=== PATIENT | female | born 1975 | race Caucasian/White ===

== ENCOUNTER → 2018-03-27 14:34 | Outpatient (CLI) | payer OTHER, SELFPAY ==
[2018-03-27 16:03] LABS: Thyroid Stim Hormone (TSH) 0.07 uIU/mL (0.358-3.74)
== END ==
PROVIDERS: Nurse Practitioner Family; Family Provider Family Medicine; PCP Family Medicine; Visit Provider Family Medicine
DX: E03.9 Hypothyroidism, unspecified (principal)
CPT/HCPCS: 36415; 84443

== ENCOUNTER → 2018-05-29 11:24 | Outpatient (CLI) | payer OTHER, SELFPAY ==
[2016-05-21 19:57] VITALS: BMI 32.8
[2018-05-29 16:10] LABS: Thyroid Stim Hormone (TSH) 0.13 uIU/mL (0.358-3.74)
== END ==
LOC: MFPLAB 11:25
PROVIDERS: Family Provider Family Medicine; PCP Family Medicine; Visit Provider Family Medicine
DX: E03.9 Hypothyroidism, unspecified (principal)
CPT/HCPCS: 36415; 84443

== ENCOUNTER 2018-06-12 09:00 | Outpatient (RCR) | payer OTHER, SELFPAY ==
--- NOTE | 2018-06-12 09:05 | BH.SGPN.GN ---
Behaviors/Verbalizations/Mental Status: []Client alert and oriented, neatly dressed and groomed. Eye contact fair. Motor activity slowed. Speech soft, rapid. Affect congruent-tearful, mood depressed, overwhelmed. Thoughts racing no signs of hallucinations or delusions. Client to meet with individual therapist to review symptoms and assess risk. Client Response/Progress/Benefit: []Client entered session alert and oriented, tearful throughout. Receptive to feedback from peers. Client shared the last few months her life has ?imploded.? Client reported she had been in a three-year relationship with a man who had bipolar disorder and the relationship ?turned into be being the caregiver? rather than a partner. Client stated she set a boundary and got her own place which ended the relationship. Client shared she later found out her partner was cheating on her and ?something inside me broke.? Client reported she overdosed on pills and her son found her. Client stated, ?I spent all this time taking care of others I forgot about me.? Client receptive to supportive statements from peers and she nodded throughout. Client shared she wants to stop feeling miserable and hopes IOP can help her do that. Client identified coming to IOP as a positive and acknowledged she is motivated to feel better which is a strength as well. Client appeared to benefit from connecting with peers and reducing stigma. Client?s first day in IOP. Client to continue to prevent decompensation and reduce depression.
--- NOTE | 2018-06-12 10:15 | BH.SGPN.GN ---
Behaviors/Verbalizations/Mental Status: [] Eye contact is good. Motor activity is appropriate. Appearance is causal. Speech is Appropriate. Mood is depressed. Affect is flat. Thoughts are linear and logical. No evidence of psychosis. Client Response/Progress/Benefit: [] Pt was an not an active participant discussion. SHe participated in group activiety however was tearful at times. Appeared attentive AEB by head-nodding and note taking. This was pt's first day in the program. Will continue in IOP to maintain safety, prevent decompensation, and improve functioning to return to work. Narrative Note: []
--- NOTE | 2018-06-12 14:30 | BH.MDN ---
Multi-Disciplinary Note - Note 30-min Individual Time Started:: 11:40 Date: 06/12/18 Purpose of session/treatment goals addressed:: The purpose of this session was to build rapport and gather information on client's current stressors, symptoms, and psychosocial concerns. Another goal was to establish treatment goals and provide emotional support. Eye Contact:: Good Motor Activity:: Appropriate Appearance:: Casual Mood:: Anxious, Dysthymic Affect:: Congruent - tearful Thoughts:: Racing, No evidence of hallucinations/delusions noted Staff Interventions:: Therapist used active listening and open-ended questions to explore client?s current stressors, symptoms, supports, and treatment goals. Therapist provided client a safe space to verbalize and process emotions, stressors, and psychosocial issues without judgement. Therapist provided emotional validation and support while processing client?s recent life changes and mental health. Therapist used psychoeducation to increase awareness of depression, medication, and reduce stigma. Therapist assessed risk and explored healthy supports. Therapist used strengths perspective and reassurance to reduce anxiety on stressors. Therapist gave client homework to identify current problems, triggers, and coping skills that have worked in the past. Client Response:: Client entered session alert and oriented, tearful throughout. Client reports she has not felt okay in two months. Client shared it is hard for her to open up about her emotions, so she numbs to avoid the floodgates. Client recently discharged from inpatient after a suicide attempt by overdose. Client stated she is remorseful of the event due to the impact it had on her family and son. Client denied active suicidal ideation as of this date. Client reported symptoms of depression including anhedonia, weight loss, crying spells, and feeling miserable and numb. Client shared these symptoms were triggered by a breakup with her boyfriend client had been with for 3 years. Client stated after the breakup she found out additional information and something inside me broke. Additionally, client reports financial and work stressors that are impacting her mental health and functioning. Client stated if I don't get it together by the end of the month and go back to work I lose my insurance. Client shared this is causing anxiety as client reports feeling like she is on a countdown. Client reported belief her current medication is not effective and is hoping that she can get a different opinion when she sees her psychiatrist tomorrow. Client able to identify positives and strengths that will support her mental health. Client acknowledged coming to IOP as a strength, accepting help from her mother and step father, and taking things one day at a time. Risks/Concerns:: Client reports having passive suicidal thoughts since discharging from the hospital, but she reported it's nothing I can't control. Client denies active suicidal ideation, plan, and intent as of 06/12/18. Client reports ability to maintain safety. Client appeared remorseful for her recent overdose. reported having protective factors and supports who could stay with her or check in on client should she need support or feel unsafe. Future oriented throughout session. Plans to see her outpatient providers tomorrow. Progress Toward Goals/Plan:: Client's first day in IOP. No progress to document at this time. Client reports wanting to be able to function without feeling overwhelmed all the time. Client also would like to be able to process her emotions, find appropriate medication, and not feel miserable anymore. Client receptive to homework from therapist. Client open to therapist talking with client's outpatient provider. Client to continue IOP to prevent decompensation, reduce depression, and gain healthy coping skills. Client reports plan to see outpatient psychiatrist and counselor tomorrow. Client to attend IOP 06/14/18. Time Stopped:: 12:15
--- NOTE | 2018-06-12 15:42 | BH.COMM ---
Communication Note - Communication with Client Communication Note: Therapist spoke with client's outpatient therapist, Reanna, at [facility] to inform outpatient therapist that client had started IOP. Therapist introduced self as client's IOP counselor and encouraged ongoing communication for continuity of care.
--- NOTE | 2018-06-14 13:50 | BH.COMM ---
Communication Note - Communication with Client Communication Note: Client left a message at [facility] this morning to cancel her scheduled IOP session for today. Client reported she was sick. Client was scheduled to see IOP psychiatrist today, but due to cancellation, she was unable to see psychiatrist this week. Therapist attempted to call client but did not reach client. Therapist left a message. Client was scheduled to see her outpatient providers yesterday. Client did not present as a risk to self or others on the last day she attended IOP.
--- NOTE | 2018-06-14 13:56 | BH.COMM_ITS ---
Communication Note - Communication with Client Communication Note: Client left a message at [facility] this morning to cancel her scheduled IOP session for today. Client reported she was sick. Client was scheduled to see IOP psychiatrist today, but due to cancellation, she was unable to see psychiatrist this week. Therapist attempted to call client but did not reach client. Therapist left a message. Client was scheduled to see her outpatient providers yesterday. Client did not present as a risk to self or oth ers on the last day she attended [facility].
--- NOTE | 2018-06-17 11:05 | BH.COMM ---
Communication Note - Communication with Client Communication Note: Therapist called client to inform client IOP groups were cancelled today due to unsafe driving and weather conditions. Client scheduled to attend IOP tomorrow, 06/18/18.
--- NOTE | 2018-06-17 11:37 | BH.COMM ---
Communication Note - Communication with Client Communication Note: group was cancelled today due to weather.
--- NOTE | 2018-06-18 11:50 | BH.COMM ---
Communication Note - Communication with Client Communication Note: Client called to cancel due to ongoing cold symptoms. Client sounded sick on the phone. Client reports plan to attend [facility] tomorrow 06/19/18.
--- NOTE | 2018-06-18 12:00 | BH.COMM_ITS ---
Communication Note - Communication with Client Communication Note: Client called to cancel due to ongoing cold symptoms. Client sounded sick on the phone. Client reports plan to attend [facility] tomorrow 06/19/18.
--- NOTE | 2018-06-20 09:20 | BH.COMM ---
Communication Note - Communication with Client Communication Note: Client left a message for this therapist regarding her no call/no show yesterday. Client has not attended group since her first day on 06/12/18. Client stated she did not come in due to ongoing cold symptoms. Client unable to make it into group today 06/20/18 as she is meeting with her outpatient therapist. Client willing to come into [facility] tomorrow to meet with psychiatrist and attend group. In client's message she asked if [facility] would prescribe Xanax to client to help alleviate anxiety symptoms. Historically in the program Xanax is not prescribed to [facility] clients due to concerns with medication monitoring and risk. However, therapist to discuss with treatment team and follow up with client.
--- NOTE | 2018-06-20 09:27 | BH.COMM_ITS ---
Communication Note - Communication with Client Communication Note: Client left a message for this therapist regarding her no call/no show yesterday. Client has not attended group since her first day on 06/12/18. Client stated she did not come in due to ongoing cold symptoms. Client unable to make it into group today 06/20/18 as she is meeting with her outpatient therapist. Client willing to come into [facility] tomorrow to meet with psychiatrist and attend group. In client's message she asked if [facility] would prescribe Xanax to client to help alleviate anxiety symptoms. Historically in the program Xanax is not prescribed to [facility] clients due to concerns with medication monitoring and risk. However, therapist to discuss with treatment team and follow up with client.
--- NOTE | 2018-06-20 15:04 | BH.COMM ---
Communication Note - Communication with Client Communication Note: Therapist returned client's call, but therapist was unable to reach client. Therapist left a message encouraging client to attend [facility] for group and to speak with psychiatrist on 06/21/18 regarding medication questions. In the message, therapist informed client that historically [facility] does not prescribe Xanax due to medication monitoring concerns and risk, but that client was welcome to discuss this with [facility] psychiatrist. Therapist reminded client to call with questions.
--- NOTE | 2018-06-21 15:10 | BH.COMM_ITS ---
Communication Note - Communication with Client Communication Note: Therapist returned client's call, but therapist was unable to reach client. Therapist left a message encouraging client to attend [facility] for group and to speak with psychiatrist on 06/21/18 regarding medication questions. In the message, therapist informed client that historically [facility] does not prescribe Xanax due to medication monitoring concerns and risk, but that client was welcome to discuss this with [facility] psychiatrist. Therapist reminded client to call with questions.
--- NOTE | 2018-06-21 15:17 | BH.COMM ---
Communication Note - Communication with Client Communication Note: Client did not show on 06/21/18 for IOP groups or to meet with psychiatrist. Client attended IOP one day from her admit date on 06/12/18-06/21/18. This is the second [facility] she has missed, and she has not been able to see [facility] psychiatrist two weeks in a row. Therapist attempted to call client to discuss solutions for barriers and plan of care moving forward. Therapist informed client that if therapist does not receive a call from client by the end of the day, client will be discharged due to not meeting program requirements for attendance.
--- NOTE | 2018-06-21 15:24 | BH.DS ---
Discharge Summary - Demographics Date of Admission:: 06/12/18 Discharge Date: 06/21/18 Presenting Problems at Admission:: Client is a 42-year-old female who was referred to [facility] by her primary care physician after a recent inpatient hospitalization from 06/02/18-06/04/18 for suicide attempt. Client denied active suicidal ideation, plan, and intent during intake and throughout time in [facility]. Client presented to [facility] with worsening depressive symptoms and reported feeling miserable all day, most days. Client endorsed depressed mood, crying spells, anhedonia, lack of motivation, guilt, avoidance behaviors, worthlessness, and hopelessness. Client also reported having ruminations, anxiety attacks, and racing thoughts. Client reported suicide attempt on 05/31/18 triggered by a breakup with her boyfriend. Client's son found client and she was taken to ER. At admission, client's symptoms continued to impact her familial, social, and occupational functioning. Discharge Diagnoses:: Major Depressive Disorder F 33.2 Reason for Discharge:: Client discharged from [facility] due to inability to adhere to the attendance requirements of [facility]. Client called in post discharge to inform therapist that [facility] level of care was not right for her at this time. Due to unplanned discharge and client only attending one [facility] session, a treatment plan and psychosocial assessment were not completed. - Treatment Progress During Treatment & Response: No progress to document as client attended [facility] for one day from 06/12/18-06/21/18. Client had cancelled due to illness, weather, and also no called/no showed two times. Client was quiet and tearful during group sessions on 06/12/18. Client was tearful, but cooperative and open to talking with therapist on 06/12/18. Client is connected with outpatient providers which is a protective factor for treatment moving forward. Issues Still to be Addressed:: Due to client's lack of attendance in [facility], client and therapist were unable to set concrete treatment goals or make progress on improving client's mood. Client could continue to benefit from ongoing individual therapy to reduce depression and anxiety, increase mood stability, and to find ways to better cope with stressors and symptoms. Client continues to grieve the loss of her relationship and can benefit from further processing the situation. Client can also benefit from ongoing medication management in addition to counseling. Client had a recent suicide attempt earlier this month, and although she is not actively suicidal, she can continue to be assessed for lethality and risk. Client can continue to engage with her supports and advocate for her needs personally and professionally. Lastly, client reported feeling overwhelmed and burnout and could benefit from ongoing work to increase emotional regulation and stress management. Discharge Recommendations/Instructions:: Client encouraged to follow up with her outpatient providers at [facility] for ongoing mental health care. Client sees therapist, Reanna, on a weekly bais at [facility]. Client saw her therapist on 06/13/18. Client also sees a psychiatrist at [facility], but she did not know the provider's name. Client had her first appointment with [facility] psychiatrist on 06/13/18. Discharge Handout: Complete Discharge Handout with client on aftercare options and continuity of care.
--- NOTE | 2018-06-21 15:49 | BH.COMM ---
Communication Note - Communication with Client Communication Note: Client did not call therapist by the end of the day to discuss continuing IOP program. Treatment team decided to discharge client at this time due to client not meeting requirements for program attendance and psychiatry. See discharge summary for more information on client's follow up care.
--- NOTE | 2018-06-24 07:24 | BH.COMM_ITS ---
Communication Note - Communication with Client Communication Note: Client did not show on 06/21/18 for IOP groups or to meet with psychiatrist. Client attended IOP one day from her admit date on 06/12/18- 06/21/18. This is the second [facility] she has missed, and she has not been able to see [facility] psychiatrist two weeks in a row. Therapist attempted to call client to discuss solutions for barriers and plan of care moving forward. Therapist informed client that if therapist does not receive a call from client by the end of the day, client will be discharged due to not meeting program requirements for attendance.
--- NOTE | 2018-06-24 07:24 | BH.DS_ITS ---
Discharge Summary - Demographics Date of Admission:: 06/12/18 Discharge Date: 06/21/18 Presenting Problems at Admission:: Client is a 42-year-old female who was referred to [facility] by her primary care physician after a recent inpatient hospitalization from 06/02/18-06/04/18 for suicide attempt. Client denied active suicidal ideation, plan, and intent during intake and throughout time in [facility]. Client presented to [facility] with worsening depressive symptoms and reported feeling miserable all day, most days. Client endorsed depressed mood, crying spells, anhedonia, lack of motivation, guilt, avoidance behaviors, worthlessness, and hopelessness. Client also reported having ruminations, anxiety attacks, and racing thoughts. Client reported suicide attempt on 05/31/18 triggered by a breakup with her boyfriend. Client's son found client and she was taken to ER. At admission, client's symptoms continued to impact her familial, social, and occupational functioning. Discharge Diagnoses:: Major Depressive Disorder F 33.2 Reason for Discharge:: Client discharged from [facility] due to inability to adhere to the attendance requirements of [facility]. Client called in post discharge to inform therapist that [facility] level of care was not right for her at this time. Due to unplanned discharge and client only attending one [facility] session, a treatment plan and psychosocial assessment were not completed. - Treatment Progress During Treatment & Response: No progress to document as client attended [facility] for one day from 06/12/18-06/21/18. Client had cancelled due to illness, weather, and also no called/no showed two times. Client was quiet and tearful during group sessions on 06/12/18. Client was tearful, but cooperative and open to talking with therapist on 06/12/18. Client is connected with outpatient providers which is a protective factor for treatment moving forward. Issues Still to be Addressed:: Due to client's lack of attendance in [facility], client and therapist were unable to set concrete treatment goals or make progress on improving client's mood. Client could continue to benefit from ongoing individual therapy to reduce depression and anxiety, increase mood stability, and to find ways to better cope with stressors and symptoms. Client continues to grieve the loss of her relationship and can benefit from further processing the situation. Client can also benefit from ongoing medication management in addition to counseling. Client had a recent suicide attempt earlier this month, and although she is not actively suicidal, she can continue to be assessed for lethality and risk. Client can continue to engage with her supports and advocate for her needs personally and professionally. Lastly, client reported feeling overwhelmed and burnout and could benefit from ongoing work to increase emotional regulation and stress management. Discharge Recommendations/Instructions:: Client encouraged to follow up with her outpatient providers at [facility] for ongoing mental health care. Client sees therapist, Reanna, on a weekly bais at [facility]. Client saw her therapist on 06/13/18. Client also sees a psychiatrist at [facility], but she did not know the provider's name. Client had her first appointment with [facility] psychiatrist on 06/13/18. Discharge Handout: Complete Discharge Handout with client on aftercare options and continuity of care.
== END 2018-06-27 23:59 ==
LOC: BHIOP 09:00
PROVIDERS: Family Provider Family Medicine; PCP Family Medicine; Referring Provider Psychiatry & Neurology Psychiatry; Visit Provider Psychiatry & Neurology Psychiatry
DX: F33.2 Major depressive disorder, recurrent severe without psychotic features (principal)
CPT/HCPCS: H0035; 90832; 90853

== ENCOUNTER → 2019-04-07 | Outpatient (CLI) | payer OTHER, SELFPAY ==
[2016-05-21 19:57] VITALS: BMI 32.8
[2019-04-07 14:59] LABS: Anion Gap 7 (5-15); BUN 15 mg/dL (7-18); BUN/Creat Ratio 20.3 RATIO (10-20); Calcium,Total 8.4 mg/dL (8.5-10.1); Chloride 106 mmol/L (98-107); Creatinine, Serum 0.74 mg/dL (0.55-1.02); EST Glomerular Filtration Rate 91 mL/min (>60); Est Glom Filt Rate - Afr Amer 110 mL/min (>60); Glucose 101 mg/dL (74-106); Sodium Level 139 mmol/L (136-145); Thyroid Stim Hormone (TSH) 0.04 uIU/mL (0.358-3.74)
== END | disposition home or self-care (01) ==
LOC: MFPLAB 12:04
PROVIDERS: Family Provider Family Medicine; PCP Family Medicine; Referring Provider Family Medicine; Visit Provider Nurse Practitioner Family
DX: Z00.00 Encounter for general adult medical examination without abnormal findings (principal); E03.9 Hypothyroidism, unspecified
CPT/HCPCS: 36415; 80048; 84443

== ENCOUNTER → 2019-12-29 | Outpatient (CLI) | payer OTHER, SELFPAY ==
[2016-05-21 19:57] VITALS: BMI 32.8
[2019-12-29 17:55] LABS: Free T3 3.8 pg/mL (2.18-3.98); T4 Total, Thyroxin 19.3 ug/dL (4.8-13.9); Thyroid Stim Hormone (TSH) 0.05 uIU/mL (0.358-3.74)
[2019-12-29 18:21] LABS: D-Dimer Quantitative (DVT/PE) 0.35 FEU/ug/m (0.27-0.49)
== END | disposition home or self-care (01) ==
LOC: MFPLAB 14:41
PROVIDERS: PCP Family Medicine; Referring Provider Family Medicine; Visit Provider Family Medicine
DX: E03.9 Hypothyroidism, unspecified (principal); N93.8 Other specified abnormal uterine and vaginal bleeding
CPT/HCPCS: 36415; 84436; 84443; 84481; 85379

== ENCOUNTER → 2020-04-13 | Outpatient (CLI) | payer OTHER, SELFPAY ==
[2016-05-21 19:57] VITALS: BMI 32.8
== END | disposition home or self-care (01) ==
LOC: LABSPEC 14:14
PROVIDERS: PCP Family Medicine; Referring Provider Family Medicine; Visit Provider Family Medicine
DX: Z20.828 Contact with and (suspected) exposure to other viral communicable diseases (principal)
CPT/HCPCS: 87635; U0003

== ENCOUNTER → 2021-02-26 07:45 | Outpatient (CLI) | payer OTHER, SELFPAY | PROVIDERS: PCP Family Medicine; Referring Provider Family Medicine; Visit Provider Family Medicine | DX: Z20.822 Contact with and (suspected) exposure to COVID-19 (principal) | CPT/HCPCS: 87635; U0005; U0003 ==

== ENCOUNTER → 2021-04-01 15:32 | Outpatient (CLI) | payer OTHER, SELFPAY ==
[2021-04-01 19:39] LABS: Anion Gap 9 (5-15); BUN 12 mg/dL (7-18); BUN/Creat Ratio 15.1 RATIO (10-20); Calcium,Total 9.2 mg/dL (8.5-10.1); Chloride 102 mmol/L (98-107); Cholesterol 172 mg/dL (200); EST Glomerular Filtration Rate 82 mL/min (>60); Est Glom Filt Rate - Afr Amer 100 mL/min (>60); Free T3 3.3 pg/mL (2.18-3.98); Glucose 107 mg/dL (74-106); High Density Lipoprotein 45 mg/dL; Potassium 4.5 mmol/L (3.5-5.1); Sodium Level 138 mmol/L (136-145); T4 Free Direct 1.53 ng/dL (0.76-1.46); Thyroid Stim Hormone (TSH) 0.43 uIU/mL (0.358-3.74); Triglycerides 162 mg/dL; Very Low Density Lipoprotein 32 mg/dL (5-40)
== END ==
LOC: MFPLAB 15:32
PROVIDERS: PCP Family Medicine; Referring Provider Family Medicine; Visit Provider Family Medicine
DX: E03.9 Hypothyroidism, unspecified (principal); R00.0 Tachycardia, unspecified
CPT/HCPCS: 36415; 80048; 80061; 84439; 84443; 84481

== ENCOUNTER → 2024-08-27 | Outpatient (CLI) | payer BC, SELFPAY ==
[2024-08-27 19:26] LABS: Anion Gap 14 (5-15); BUN 15 mg/dL (4-19); BUN/Creat Ratio 22.4 RATIO (10-20); Calcium,Total 9.2 mg/dL (7.6-11.0); Carbon Dioxide 21.1 mmol/L (21.0-32.0); Chloride 102 mmol/L (98-108); Cholesterol 178 mg/dL (<=200); Creatinine, Serum 0.68 mg/dL (0.70-1.20); EST Glomerular Filtration Rate 107 (>60); Glucose 103 mg/dL (70-99); High Density Lipoprotein 48 mg/dL; Low Density Lipoprotein Calc. 99 mg/dL; Potassium 4.1 mmol/L (3.3-5.1); Sodium Level 137 mmol/L (133-145); Triglycerides 155 mg/dL; Very Low Density Lipoprotein 31 mg/dL (5-40); cholesterol:hdl ratio screen 3.68
== END | disposition home or self-care (01) ==
LOC: MFPLAB 16:00
PROVIDERS: PCP Family Medicine; Referring Provider Family Medicine; Visit Provider Family Medicine
DX: Z00.00 Encounter for general adult medical examination without abnormal findings (principal)
CPT/HCPCS: 36415; 80048; 80061

== ENCOUNTER → 2025-01-09 | Outpatient (CLI) | payer BC, SELFPAY ==
[2025-01-09 18:10] LABS: Free T3 3.0 pg/mL (2.18-3.98)
== END | disposition home or self-care (01) ==
LOC: MFPLAB 16:20
PROVIDERS: PCP Family Medicine; Visit Provider Family Medicine
DX: E03.9 Hypothyroidism, unspecified (principal)
CPT/HCPCS: 36415; 84439; 84443; 84481